=== PATIENT | female | born 1980 | race African-American/Black ===

== ENCOUNTER 2018-04-04 10:18 | Emergency (ER) | payer BC ==
[~2018-04-04] VITALS: Ht 157.5 cm; Wt 76.7 kg
[2018-04-04] MEDS ORDERED: PENICILLIN G BENZATHINE LA 1.2 MU TBX IM STA (10:32)
[2018-04-04] MEDS ORDERED: DEXAMETHASONE SOD PHOS 10 MG/1 ML VIAL INJ ONE (10:45)
[2018-04-04] MEDS ORDERED: ACETAMINOPHEN/CODEINE ELIX 120-12 MG/5 ML UDC PO ONE (10:45)
[2018-04-04 11:56] VITALS: BP 131/79
== END 2018-04-04 12:01 | disposition home or self-care (01) ==
LOC: ER 10:18
DX: J02.0 Streptococcal pharyngitis (principal)
CPT/HCPCS: 99283; J0561; J1100

== ENCOUNTER 2018-04-06 09:36 | Emergency (ER) | payer BC ==
[~2018-04-06] VITALS: Ht 157.5 cm; Wt 76.7 kg
[2018-04-06] MEDS ORDERED: IBUPROFEN 200 MG TAB PO STA (09:54)
[2018-04-06] MEDS ORDERED: ONDANSETRON HCL 4 MG ORAL DISINTEGRATING TAB PO ONE (10:00)
[2018-04-06] MEDS ORDERED: ACETAMINOPHEN/CODEINE ELIX 120-12 MG/5 ML UDC PO ONE (10:00)
[2018-04-06] MEDS ORDERED: CEFTRIAXONE SOD 1 GM VIAL IM ONE (10:00)
[2018-04-06] MEDS ORDERED: CEFTRIAXONE SOD 1 GM VIAL ONE (10:07)
[2018-04-06] MEDS ORDERED: SODIUM CHLORIDE 0.9% 1000ML 1,000 ML IV SCH (10:15)
[2018-04-06 10:35] LABS: BASOPHILS % 0.4 % (0.0-1.0); EOSINOPHILS # (AUTO) 0.2 (0.0-0.4); EOSINOPHILS % 1.9 % (0.0-6.0); HEMATOCRIT 35.6 % (34.2-44.1); HEMOGLOBIN 12.2 g/dL (12.0-16.0); LYMPHOCYTES % 18.9 % (18.0-39.1); MEAN CORPUSCULAR HGB CONC 34.3 g/dL (31-35); MEAN CORPUSCULAR VOLUME 84.8 fL (81-99); MONOCYTES # (AUTO) 0.9 (0.2-0.8); MONOCYTES % 8.3 % (4.4-11.3); NEUTROPHILS # (AUTO) 7.5 (2.1-6.9); NEUTROPHILS % 70.2 % (38.7-80.0); PLATELET COUNT 240 x10e3/uL (140-360); RED CELL DISTRIBUTION WIDTH 13.2 % (11.7-14.4)
[2018-04-06 10:48] LABS: ANION GAP 14.3 mmol/L (8-16); BLOOD UREA NITROGEN 9 mg/dL (7-26); BUN/CREATININE RATIO 12 (6-25); CALCIUM 8.9 mg/dL (8.4-10.2); CARBON DIOXIDE 27 mmol/L (22-29); CHLORIDE 103 mmol/L (98-107); CREATININE, SERUM 0.75 mg/dL (0.57-1.11); EST GLOMERULAR FILTRATION RATE > 60 ML/MIN (60-); GLUCOSE 84 mg/dL (74-118); POTASSIUM 4.3 mmol/L (3.5-5.1); SODIUM 140 mmol/L (136-145)
[2018-04-06] MEDS ORDERED: CEFTRIAXONE SOD 1 GM VIAL IV ONE (11:00)
--- NOTE | 2018-04-06 12:33 | Diagnostic Imaging Report ---
EXAMINATION: CT of the neck with contrast HISTORY: Sore throat COMPARISON: None TECHNIQUE: Multidetector helical axial images were obtained from the sternal notch through the skull base during intravenous infusion of iodinated contrast material. Images were reconstructed using soft tissue and bone algorithms and were viewed in multiplanar format. Intravenous contrast: 100 mL of Isovue 370 mL. FINDINGS: Mass: None. Nodes: Multiple mildly enlarged and mildly enhancing bilateral supra and infrahyoid neck cervical lymphadenopathy to include right greater than left lateral retropharyngeal lymph nodes. Sinuses: Imaged portions unremarkable. Oral cavity: Unremarkable. Salivary glands: Parotid and submandibular glands unremarkable. Pharynx: Prominent enlargement of the right and left collecting tonsils with small pockets of fluid within the crevices of the right collecting tonsil and along the superior/posterior aspect of the gland, related to early peritonsillar abscess formation. Mild narrowing of the oropharynx Larynx: Unremarkable. Thyroid gland: Unremarkable. Upper esophagus: Unremarkable. Blood vessels: Unremarkable. Bones: Unremarkable. IMPRESSION: 1. Consistent with right greater than left tonsillitis and small right peritonsillar abscess. 2. Multiple enlarged likely reactive cervical lymphadenopathy. Clinical follow-up until resolution is recommended. Signed by: Dr. Payton Tse M.D. on 04/06/2018 12:29 PM
[2018-04-06] MEDS ORDERED: CLINDAMYCIN PHOS 900MG/ D5W 50 50 ML IV STA (12:45)
[2018-04-06] MEDS ORDERED: DEXAMETHASONE SOD PHOS INJ 4 MG/ML VIAL IV ONE ×2 (12:45→13:30)
[2018-04-06] MEDS ORDERED: SODIUM CHLORIDE 0.9% 50ML 50 ML ONE (14:16)
[2018-04-06] MEDS ORDERED: IOPAMIDOL 370 MG/ML 200 ML INFUS..BTL INJ ONE (14:16)
== END 2018-04-06 14:16 | disposition home or self-care (01) ==
LOC: ER 09:36
DX: J36 Peritonsillar abscess (principal); J03.90 Acute tonsillitis, unspecified
CPT/HCPCS: 36415; 70491; 80048; 83518; 84702; 85025; 86308; 87070; 99284; J0696; J1100; J7030; Q9967

== ENCOUNTER → 2018-04-21 | Outpatient (CLI) | payer BC ==
[~2018-04-21] MED LIST: LIDOCAINE VISC 2% SOLN 15 ML UDC ONE
== END ==
LOC: WCC 08:59
PROVIDERS: ATTEND Nurse Practitioner Family
DX: T81.31XA Disruption of external operation (surgical) wound, not elsewhere classified, initial encounter (principal); Y83.8 Other surgical procedures as the cause of abnormal reaction of the patient, or of later complication, without mention of misadventure at the time of the procedure; S21.001A Unspecified open wound of right breast, initial encounter; S21.002A Unspecified open wound of left breast, initial encounter

== ENCOUNTER → 2018-04-28 | Outpatient (CLI) | payer BC ==
[~2018-04-28] MED LIST changes: +IOPAMIDOL 200 MG/ML 20 ML VIAL IT ONE; +IOPAMIDOL 300MG/ML 50ML INFUS..BTL IV ONE; -LIDOCAINE VISC 2% SOLN 15 ML UDC ONE
== END ==
LOC: WCC 13:18
PROVIDERS: ATTEND Nurse Practitioner Family
DX: T81.31XA Disruption of external operation (surgical) wound, not elsewhere classified, initial encounter (principal); S21.002A Unspecified open wound of left breast, initial encounter; S21.001A Unspecified open wound of right breast, initial encounter; Y83.8 Other surgical procedures as the cause of abnormal reaction of the patient, or of later complication, without mention of misadventure at the time of the procedure; I10 Essential (primary) hypertension